=== PATIENT | male | born 1940 | race Caucasian/White ===

== ENCOUNTER → 2016-10-06 | Outpatient (CLI) | payer OTHER | LOC: FIMAGING 18:55 | PROVIDERS: ATTEND Family Medicine | DX: M99.73 Connective tissue and disc stenosis of intervertebral foramina of lumbar region (principal); R93.7 Abnormal findings on diagnostic imaging of other parts of musculoskeletal system ==

== ENCOUNTER → 2016-10-29 | Outpatient (CLI) | payer OTHER | LOC: FIMAGING 10:10 | PROVIDERS: ATTEND Family Medicine | DX: Z13.828 Encounter for screening for other musculoskeletal disorder (principal) ==

== ENCOUNTER 2018-04-11 11:15 | Emergency (ER) | payer OTHER ==
--- NOTE | 2018-04-11 12:35 | EDPHY ---
H & P Stated Complaint: lower back pain down left leg x 1 week after lifting books Time Seen by Provider: 04/11/18 12:24 HPI/ROS: CHIEF COMPLAINT: Left low back pain HISTORY OF PRESENT ILLNESS: 77-year-old male complaining of acute left lumbar pain and left lumbar radiculopathy for the past 5 days which started after he was lifting heavy box. He went to urgent care, had x-rays performed showing multilevel degenerative disc disease, given prescription for baclofen which has not alleviated his symptoms. He has seen an ham stripper and has had no relief of symptoms. He has been unable to rest. He contact his primary care provider Dr. Santos Garcia who is next availability was in several weeks. He would like an MRI from the ER today. PRIMARY CARE PROVIDER: REVIEW OF SYSTEMS: A ten point review of systems was performed and is negative with the exception of the items mentioned in the HPI PAST MEDICAL & SURGICAL HISTORY: Right hip replacement. Hyperlipidemia. Gout. SOCIAL HISTORY: Nonsmoker. PHYSICAL EXAM (Prior to examination, patient consented to physical exam, hands were washed and my usual and customary physical exam procedures followed) 1) GENERAL: Well-developed, well-nourished, alert and oriented. Appears uncomfortable 2) HEAD: Normocephalic, atraumatic 3) HEENT: Pupils equal, round, reactive to light bilaterally. Sclera anicteric. Nasopharynx, oropharynx, clear, no lesions. 4) NECK: Full range of motion, no meningeal signs. 5) LUNGS: Clear auscultation bilaterally, no wheezes, no rhonchi, no retractions. 6) HEART: Regular rate and rhythm, no murmur, no heave, no gallop. 7) ABDOMEN: No guarding, no rebound, no focal tenderness, negative McBurney's, negative Vasquez's, negative Rovsing's, negative peritoneal sign, 8) MUSCULOSKELETAL: Moving all extremities, no focal areas of tenderness, no obvious trauma. No peripheral edema or discoloration. 9) BACK: No lesions no vesicles.. No CVA tenderness, no midline vertebral tenderness, no fluctuance, no step-off, no obvious trauma, no visual or palpable abnormality. Patella, Achilles reflexes intact to bilateral strength 5 /5 10) SKIN: No rash, no petechiae. 11) NEURO: Awake, alert, and oriented to person, place and time. Answers questions appropriately. There were no obvious focal neurologic abnormalities. No cerebellar dysfunction. Normal steady gait. Upper and lower extremities bilaterally with strength 5 / 5, reflexes 2+.. DIFFERENTIAL DIAGNOSIS: In no particular order, including but not limited to, fracture, sprain/strain, cauda equina, spinal infectious etiology. - Personal History Tetanus Vaccine Date: unsure - Medical/Surgical History Hx Asthma: No Hx Chronic Respiratory Disease: No Hx Diabetes: No Hx Cardiac Disease: No Hx Renal Disease: No Hx Cirrhosis: No Hx Alcoholism: No Hx HIV/AIDS: No Hx Splenectomy or Spleen Trauma: No Other PMH: R hip replacmt. Hyperlipidemia. gout - Social History Smoking Status: Never smoked Constitutional: Initial Vital Signs Temperature (C) 36.5 C 04/11/18 11:25 Heart Rate 76 04/11/18 11:25 Respiratory Rate 18 04/11/18 11:25 Blood Pressure 150/68 H 04/11/18 11:25 O2 Sat (%) 97 04/11/18 11:25 O2 Delivery Mode Room Air Allergies/Adverse Reactions: No Known Allergies Allergy (Unverified 11/04/11 11:55) Home Medications: Medication Instructions Recorded Baclofen 10 mg (*) 04/11/18 Hydrocodone/APAP 5/325 [[place] 1 tab PO Q6 PRN #10 tab 04/11/18 5/325 (RX)] Indomethacin 04/11/18 Medical Decision Making ED Course/Re-evaluation: MEDICAL DECISION MAKING 12:35 p.m.: I have evaluated the patient Lower index of suspicion for cauda equina, epidural abscess, epidural hematoma, lumbar myositis, diskitis, as the patient is neurologically intact in the lower extremities, has patella and Achilles reflexes intact and equal bilaterally, has no neurologic deficits, no incontinence, no retention, no midline pain, no fluctuance, afebrile, no flulike symptoms. Pain may be secondary to muscular strain, may be secondary to discogenic etiology. I reviewed his x-rays performed few days ago. Patient would like an MRI of his lumbar spine. He does feel that he is able to care for himself although he has at home by himself currently. 2:30 p.m.: Re-evaluation with serial exams. Discussed his imaging results. He remains neurologically intact lower extremities. No abdominal pain. Doubt abdominal pathology such as abdominal aortic aneurysm with referred pain. He has no evidence of cauda equina on exam or on MRI. Plan will be discharge, follow up with Dr. Santos Garcia. Discharged with [place]. My usual customary back pain precautions instructions provided. Care of patient under supervision of secondary supervising physician Dr Crane . Departure - Departure Disposition: Home, Routine, Self-Care Clinical Impression: Lumbar radiculopathy, acute Condition: Good Instructions: Lumbar Radiculopathy (ED) Additional Instructions: Seek medical attention if you develop new or worsening pain, if you develop bladder or bowel dysfunction, numbness around your perineum, foot drop, or any other symptoms that concern you. Referrals: Santos Garcia MD [Primary Care Provider] - 1-2 days without fail Prescriptions: Hydrocodone/APAP 5/325 [[place] 5/325 (RX)] 1 tab PO Q6 PRN #10 tab PRN Reason: Pain, Severe
[2018-04-11 14:58] VITALS: BP 133/82
== END 2018-04-11 15:18 | disposition home or self-care (01) ==
DX: M51.16 Intervertebral disc disorders with radiculopathy, lumbar region (principal); M46.96 Unspecified inflammatory spondylopathy, lumbar region; E78.5 Hyperlipidemia, unspecified; M10.9 Gout, unspecified